=== PATIENT | male | born 1965 | race Two or more races ===

== ENCOUNTER 2018-11-19 18:43 | Emergency (ER) | payer MEDICAID, SELFPAY ==
[~2018-11-19] VITALS: Ht 162.6 cm; Wt 90.7 kg
[~2018-11-19 18:43] MED LIST: ASPIRIN81 M1 PO; ATIVAN0.5 MG ORAL; ATIVAN1 MG ORAL; CITALOPRAM HBR40 M1 PO; GLUCOPHAGE500 MG PO; METFORMIN HCL5000 GM MC; PROPRANOLOL PO; RISPERDAL1 MG/1 ML PO; TENORMIN100 MG ORAL; ZESTRIL5 MG PO
[2018-11-19] MEDS ORDERED: Nitroglycerin 2% oint pkt TOPIC ONE (18:45)
--- NOTE | 2018-11-19 18:45 | NUR ---
ED Nurse Note: RA 33 D/T SUBSTERNAL CP X1 HOUR. PT GIVEN 325 ASA, 2 SPRAY NITRO PRIOR TO ARRIVAL
[2018-11-19 18:50] VITALS: BP 133/75
--- NOTE | 2018-11-19 19:17 | Emergency Room Report ---
History of Present Illness General Chief Complaint: Chest Pain Source: Patient, EMS Present Illness HPI Patient is brought in by EMS. He is complaining about chest pain. His blood pressure was fluctuating also before. He took an extra clonidine. This has been going on for 2 months. He was l hospitalized in [place] last weekend. He had a stress test that was normal and an echocardiogram that was normal also. He was told that it is caused by his nerves. He had the same problem 10 years ago was improved with Ativan. No Ativan was prescribed. The pain began when he was sitting in a chair at rest. It is not exertional. He feels pressure in his chest. Initially it was 6/10 and after treatment in the field with nitrates and aspirin reduced to 4/10. Slight nausea no diaphoresis. The pain does not radiate. It is pressure in his chest. Recently he was switched from losartan to clonidine. He was told to take clonidine if his blood pressure was elevated. He denies dizziness, syncope, visual change or headache. He denies suicidal or homicidal ideation. His risk factors for cardiac disease are hypertension and diabetes. He does not smoke and does not have a family history. No headache or rashes. No joint pain. No calf tenderness or edema. Allergies: Coded Allergies: MORPHINE (Verified Allergy, Unknown, 03/24/11) Patient History Past Medical History: see triage record Social History: Denies: smoking, alcohol use, drug use Social History Narrative At home Reviewed Nursing Documentation: PMH: Agreed; PSxH: Agreed Nursing Documentation-PMH Past Medical History: No History, Except For Hx Cardiac Problems: Yes Hx Hypertension: Yes Hx Diabetes: Yes Hx Cancer: No Hx Gastrointestinal Problems: No Hx Neurological Problems: Yes Hx Vertigo: Yes Hx Dizziness: Yes Hx Syncope: Yes Hx Headaches: Yes Hx Weakness: Yes Hx Fatigue: Yes Review of Systems All Other Systems: negative except mentioned in HPI Physical Exam Vital Signs Date Time Temp Pulse Resp B/P (MAP) Pulse Ox O2 Delivery O2 Flow Rate FiO2 11/19/18 18:38 98.1 73 18 133/75 (94) 98 Room Air Sp02 EP Interpretation: reviewed, normal General Appearance: well appearing, no apparent distress, GCS 15 Head: normocephalic Eyes: bilateral eye normal inspection, bilateral eye PERRL, bilateral eye EOMI ENT: moist mucus membranes Neck: supple Respiratory: chest non-tender, lungs clear, normal breath sounds Cardiovascular #1: regular rate, rhythm, no edema, no JVD Cardiovascular #2: 2+ radial (R) Gastrointestinal: normal inspection, normal bowel sounds, non tender, no mass, non-distended Musculoskeletal: back normal, normal range of motion Neurologic: alert, oriented x3, grossly normal Psychiatric: no suicidal/homicidal ideation, anxious - Minimally Skin: no rash Medical Decision Making Diagnostic Impression: Primary Impression: Chest pain Qualified Codes: R07.9 - Chest pain, unspecified Additional Impressions: Anxiety Elevated lipase Renal insufficiency Hyperglycemia ER Course Except for elevated glucose and the patient presents with substernal chest pain that with 2 risk factors and improvement with nitrates in the field and aspirin. Differential includes acute microinfarction, unstable angina, acute coronary syndrome, anxiety, GERD amongst others. It is reassuring that he had full cardiac work-up done last weekend that was negative. However we need to exclude cardiac damage at this time. His intermittent use of antihypertensive is disconcerting. 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 EKG normal sinus rhythm nonspecific ST-T wave changes. CBC and CMP normal creatinine of 1.5. Elevated lipase. No abdominal pain. Patient improved with treatment. Discussed findings. Also discussed treatment plan. Advised not to take clonidine on an occasional basis but to seek to stabilize his blood pressure medication. No medical emergency at this time. The fact he had a recent treadmill is reassuring. Patient stable for outpatient observation and treatment. Laboratory Tests Test 11/19/18 19:00 White Blood Count 9.3 K/UL (4.8-10.8) Red Blood Count 4.66 M/UL (4.70-6.10) L Hemoglobin 14.0 G/DL (14.2-18.0) L Hematocrit 41.8 % (42.0-52.0) L Mean Corpuscular Volume 90 FL (80-99) Mean Corpuscular Hemoglobin 30.0 PG (27.0-31.0) Mean Corpuscular Hemoglobin Concent 33.4 G/DL (32.0-36.0) Red Cell Distribution Width 13.1 % (11.6-14.8) Platelet Count 302 K/UL (150-450) Mean Platelet Volume 5.7 FL (6.5-10.1) L Neutrophils (%) (Auto) 57.5 % (45.0-75.0) Lymphocytes (%) (Auto) 31.3 % (20.0-45.0) Monocytes (%) (Auto) 6.7 % (1.0-10.0) Eosinophils (%) (Auto) 3.2 % (0.0-3.0) H Basophils (%) (Auto) 1.3 % (0.0-2.0) Prothrombin Time 11.4 SEC (9.30-11.50) Prothrombin Time INR 1.1 (0.9-1.1) PTT 28 SEC (23-33) Sodium Level 139 MMOL/L (136-145) Potassium Level 3.9 MMOL/L (3.5-5.1) Chloride Level 104 MMOL/L (98-107) Carbon Dioxide Level 23 MMOL/L (21-32) Anion Gap 12 mmol/L (5-15) Blood Urea Nitrogen 14 mg/dL (7-18) Creatinine 1.5 MG/DL (0.55-1.30) H Estimate Glomerular Filtration Rate 48.8 mL/min (>60) Glucose Level 229 MG/DL (74-106) H Calcium Level 9.1 MG/DL (8.5-10.1) Total Bilirubin 0.5 MG/DL (0.2-1.0) Aspartate Amino Transferase (AST) 24 U/L (15-37) Alanine Aminotransferase (ALT) 43 U/L (12-78) Alkaline Phosphatase 88 U/L (46-116) Total Creatine Kinase 162 U/L (26-308) Troponin I 0.000 ng/mL (0.000-0.056) Pro-B-Type Natriuretic Peptide 50 pg/mL (0-125) Total Protein 7.7 G/DL (6.4-8.2) Albumin 3.7 G/DL (3.4-5.0) Globulin 4.0 g/dL Albumin/Globulin Ratio 0.9 (1.0-2.7) L Lipase 469 U/L (73-393) H Urine Opiates Screen Negative (NEGATIVE) Urine Barbiturates Screen Negative (NEGATIVE) Phencyclidine (PCP) Screen Negative (NEGATIVE) Urine Amphetamines Screen Negative (NEGATIVE) Urine Benzodiazepines Screen Negative (NEGATIVE) Urine Cocaine Screen Negative (NEGATIVE) Urine Marijuana (THC) Screen Negative (NEGATIVE) EKG Diagnostic Results Rate: normal Rhythm: NSR ST Segments: no acute changes Rhythm Strip Diag. Results EP Interpretation: yes Rhythm: NSR, no PVC's, no ectopy Chest X-Ray Diagnostic Results Chest X-Ray Diagnostic Results : Chest X-Ray Ordered: Yes # of Views/Limited/Complete: 1 View Indication: Chest Pain EP Interpretation: Yes Interpretation: no consolidation, no effusion, no pneumothorax Impression: No acute disease Electronically Signed by: Electronically signed by Zuhair Sanchez MD Last Vital Signs Date Time Temp Pulse Resp B/P (MAP) Pulse Ox O2 Delivery O2 Flow Rate FiO2 11/19/18 22:03 98.4 63 18 119/75 96 Room Air Status: improved Disposition: HOME, SELF-CARE Condition: Improved Scripts Lorazepam* (ATIVAN*) 0.5 Mg Tablet 0.5 MG ORAL THREE TIMES A DAY, #10 TAB Prov: Zuhair Sanchez MD 11/19/18 Zuhair Sanchez MD Nov 19, 2018 19:17
[2018-11-19 19:21] LABS: BASOPHILS % (AUTO) 1.3 % (0.0-2.0); EOSINOPHILS % (AUTO) 3.2 % (0.0-3.0); HEMATOCRIT 41.8 % (42.0-52.0); LYMPHOCYTES % (AUTO) 31.3 % (20.0-45.0); MEAN CORPUSCULAR VOLUME 90 FL (80-99); MONOCYTES % (AUTO) 6.7 % (1.0-10.0); NEUTROPHILS % (AUTO) 57.5 % (45.0-75.0); PLATELET COUNT 302 K/UL (150-450); RED BLOOD COUNT 4.66 M/UL (4.70-6.10); RED CELL DISTRIBUTION WIDTH 13.1 % (11.6-14.8); WHITE BLOOD COUNT 9.3 K/UL (4.8-10.8)
[2018-11-19 19:34] LABS: ANION GAP 12 mmol/L (5-15); BLOOD UREA NITROGEN 14 mg/dL (7-18); CALCIUM 9.1 MG/DL (8.5-10.1); CARBON DIOXIDE 23 MMOL/L (21-32); CHLORIDE 104 MMOL/L (98-107); CREATININE 1.5 MG/DL (0.55-1.30); POTASSIUM 3.9 MMOL/L (3.5-5.1); SODIUM 139 MMOL/L (136-145)
[2018-11-19 19:35] LABS: INR 1.1 (0.9-1.1)
[2018-11-19 19:46] LABS: ALANINE AMINOTRANSFERASE 43 U/L (12-78); ALBUMIN 3.7 G/DL (3.4-5.0); ALBUMIN/GLOBULIN RATIO 0.9 (1.0-2.7); ALKALINE PHOSPHATASE 88 U/L (46-116); ASPARTATE AMINO TRANSFERASE 24 U/L (15-37); BILIRUBIN,TOTAL 0.5 MG/DL (0.2-1.0); CREATINE KINASE 162 U/L (26-308)
[2018-11-19 19:47] VITALS: BP 124/72
[2018-11-19] MEDS ORDERED: ATIVAN0.5 MG ORAL (21:53)
--- NOTE | 2018-11-19 22:02 | NUR ---
ER DISCHARGE NOTE: Patient is cleared to be discharged per ERMD, pt is aox4, on room air, with stable vital signs. pt was given dc and prescription instructions, pt was able to verbalize understanding, pt id band and iv site removed without complications. pt is able to ambulate with steady gait. pt took all belongings.
[2018-11-19 22:03] VITALS: BP 119/75
--- NOTE | 2018-11-20 11:15 | Cardiology Report ---
APPROVED REPORT EKG Measurement Heart [id number] Normal sinus rhythm Nonspecific T wave abnormality Abnormal ECG
--- NOTE | 2018-11-20 13:07 | Diagnostic Imaging Report ---
Indication: Reason For Exam: CP Technique: One view of the chest Comparison: none Findings: Lungs and pleural spaces are clear. Heart size is upper limit normal. No significant change Impression: No acute process
== END 2018-11-19 22:02 | disposition home or self-care (01) ==
LOC: EDBD 18:43 → EDBEDREQ 19:10 → EMR 19:15
DX: R07.9 Chest pain, unspecified (principal); E11.65 Type 2 diabetes mellitus with hyperglycemia; F41.9 Anxiety disorder, unspecified; N28.9 Disorder of kidney and ureter, unspecified; I10 Essential (primary) hypertension; R74.8 Abnormal levels of other serum enzymes
CPT/HCPCS: 36415; 71045; 80053; 80307; 82550; 83690; 83880; 84484; 85025; 85610; 85730; 93005; 99284